=== PATIENT | male | born 1955 | race Caucasian/White ===

== ENCOUNTER 2016-11-20 10:47 | Emergency (ER) | payer BC ==
[~2016-11-20] VITALS: Ht 175.3 cm; Wt 75.5 kg
[2016-11-20 10:49] VITALS: BP 116/77
[2016-11-20] MEDS ORDERED: ONDANSETRON 2MG/ML, 2ML ONE (11:18)
[2016-11-20] MEDS ORDERED: HYDROmorphone 1 MG/ML, 1ML ONE ×2 (11:18→14:06)
[2016-11-20] MEDS: HYDROmorphone 1 MG/ML, 1ML IVPush PRN ×2 (11:20→14:08)
[2016-11-20] MEDS ORDERED: ONDANSETRON 2MG/ML, 2ML IVPush ONE (11:30)
[2016-11-20] MEDS ORDERED: SODIUM CHLORIDE FLUSH 10ML SYR IVF ONE (11:30)
[2016-11-20 12:04] LABS: BLOOD UREA NITROGEN 15 mg/dL (7-18)
== END 2016-11-20 14:22 | disposition home or self-care (01) ==
LOC: ED 12:38
DX: S46.111A Strain of muscle, fascia and tendon of long head of biceps, right arm, initial encounter (principal); X50.1XXA Overexertion from prolonged static or awkward postures, initial encounter; Y93.89 Activity, other specified; Y92.89 Other specified places as the place of occurrence of the external cause; Y99.8 Other external cause status
CPT/HCPCS: 36415; 73080; 73221; 80048; 82040; 82550; 85025; 96374; 96375; 96376; 99285; J1170; J2405

== ENCOUNTER 2020-12-12 08:20 | Emergency (ER) | payer BC ==
[~2020-12-12] VITALS: Ht 175.3 cm; Wt 78.0 kg
[2020-12-12 08:23] VITALS: BP 99/66
== END 2020-12-12 09:43 | disposition home or self-care (01) ==
LOC: ED 09:39
DX: Z00.00 Encounter for general adult medical examination without abnormal findings (principal)
CPT/HCPCS: 99281